=== PATIENT | male | born 1960 ===

== ENCOUNTER 2020-05-16 15:21 | Outpatient (CLI) | payer OTHER ==
--- NOTE | 2020-05-17 09:11 | XRay Report ---
Left knee-3 views INDICATION: LEFT KNEE PAIN. COMPARISON: None. IMPRESSION: No acute osseous or soft tissue abnormality. Moderate tricompartmental DJD. Signer Name: Kole Roper MD Signed: 05/16/2020 3:53 PM Workstation Name: [id number]
== END 2020-05-16 15:22 | disposition home or self-care (01) ==
LOC: SPVIMAG 15:21
PROVIDERS: ATTEND Urology
DX: M17.12 Unilateral primary osteoarthritis, left knee (principal)